=== PATIENT | female | born 1980 | race Caucasian/White ===

== ENCOUNTER 2017-02-14 14:04 | Emergency (ER) | payer MEDICAID ==
[~2017-02-14] VITALS: Ht 165.1 cm; Wt 49.0 kg
[2017-02-14 14:09] VITALS: BP 113/78
--- NOTE | 2017-02-14 15:21 | NUR ---
PT PROVIDED W/ SLING. D/C W/ PRESCRIPTION. STABLE CONDITION.
== END 2017-02-14 15:23 | disposition home or self-care (01) ==
LOC: ER 14:08
DX: M75.32 Calcific tendinitis of left shoulder (principal); D64.9 Anemia, unspecified; Z98.890 Other specified postprocedural states; X50.0XXA Overexertion from strenuous movement or load, initial encounter; Y93.89 Activity, other specified; Y92.89 Other specified places as the place of occurrence of the external cause; Y99.8 Other external cause status
CPT/HCPCS: 73030-TC; Z7610